=== PATIENT | female | born 1985 | race Caucasian/White ===

== ENCOUNTER 2019-08-20 13:26 | Inpatient (IN) ==
[2019-08-20 14:19] LABS: URINE SOURCE CLEAN CATCH
--- NOTE | 2019-08-20 14:21 | Diag Imaging Result Doc PS360 ---
CHEST-2 VIEWS - 08/20/2019 INDICATION: WEAKNESS COMPARISON: None FINDINGS: The lungs are normally expanded and clear. Heart size and mediastinal contours are normal. No pneumothorax or pleural effusion. IMPRESSION: Negative exam. Electronically signed by Joce Casillas 08/20/2019 2:19 PM
[2019-08-20 14:30] LABS: BILIRUBIN URINE NEGATIVE (NEGATIVE); BLOOD URINE NEGATIVE (NEGATIVE); COLOR STRAW; GLUCOSE URINE NEGATIVE (NEGATIVE); KETONE URINE NEGATIVE (NEGATIVE); LEUKOCYTES URINE NEGATIVE (NEGATIVE); NITRITE URINE NEGATIVE (NEGATIVE); PROTEIN URINE NEGATIVE (NEGATIVE); SP GRAVITY URINE 1.007; TURBIDITY URINE CLEAR (CLEAR); UR EPITHELIAL CELLS <10 /HPF (<10); URINE BACTERIA NEGATIVE /HPF; URINE RBC <10 /HPF (<10); URINE WBC <10 /HPF (<10); UROBILINOGEN URINE NORMAL (NORMAL)
--- NOTE | 2019-08-20 14:33 | PROVIDER DOCUMENTATION ---
HPI-Screening - General Chief Complaint: Weakness Stated Complaint: BLOOD SUGAR PROB Time Seen by Provider: 08/20/19 14:20 Source: patient Patient arrived via EMS?: No HPI: 34yof presents to ED today c/o SOB, fatigue x1 week which she states is c/w prior episodes of anemia which require blood transfusions. She states she was transfused in Sep 2018 and again in December 2018 for same. She reports no cause has been identified for her chronic anemia. She denies fever/chills/N/V/D/hematuria/rectal bleeding/melena. Physical Exam-Screening - CONSTITUTIONAL General Appearance: appears well, alert, no apparent distress - EYES Eyes: PERRL/EOMI, pale conjunctivae - HEAD, EARS, NOSE, MOUTH & THROAT HENMT: normocephalic/atraumatic, moist mucous membranes, normal ENT inspection - NECK Neck: non-tender, full range of motion, supple, normal inspection - RESPIRATORY Respiratory: chest non-tender, lungs clear, normal breath sounds - CARDIOVASCULAR Cardiovascular: normal peripheral pulses, regular rate, rhythm, no edema, no gallop, no JVD - GASTROINTESTINAL (ABDOMEN) Abdominal Exam: normal bowel sounds, non tender, soft, no organomegaly - LYMPHATIC Lymphatic: no adenopathy - MUSCULOSKELETAL Back Exam: normal inspection, no CVA tenderness, no vertebral tenderness Extremity: normal range of motion, non-tender, normal gait, normal inspection - SKIN Integumentary: normal turgor, warm/dry, pallor (mild) - NEUROLOGIC Neurologic: 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 II-XII nml as tested, grossly normal, no motor/sensory deficits - PSYCHIATRIC Psych/Mental Status: normal mood/affect, normal thought content, normal thought process, oriented x 3 Screening Depart - Departure ED Screening Disposition: Continued in ED for Treatment DIAGNOSIS: Weakness generalized Certified Medical Emergency: Emergent Condition: Stable Referrals and Follow-Ups: None,PCP [Primary Care Provider] - Attestation - Physician/ WINDY Attestation Patient care was provided by Advanced Practice Provider:: Yes Advanced Practice Provider:: Kaley Donnelly Advanced Practice Provider documentation review:: The Mid-level provider documentation, treatment plan and medical decision making was reviewed by the physician who agrees with all treatment and medical decision making by the MLP. The physician spent face to face time with patient:: No Advanced Practice Provider documentation review:: Supervising physician onsite and consulted in the evaluation and care of this patient. The physician did not have a face to face encounter with the patient.
[2019-08-20 14:34] LABS: BASO# 0.16 X1000 (0.0-0.2); BASO% 2.2 % (0.0-0.8); EOS# 0.12 X1000 (0.0-0.7); EOS% 1.7 % (0.0-10.0); HEMATOCRIT 28.2 % (37.0-47.0); HEMOGLOBIN 7.2 g/dL (12.0-16.0); LYMPH# 2.92 X1000 (1.2-3.4); LYMPH% 40.2 % (20.5-51.1); MCH 15.9 PG (27-31); MCHC 25.5 g/dL (33-37); MCV 62.1 FL (81-99); MONO# 0.54 X1000 (0.11-0.59); MONO% 7.4 % (1.7-9.3); MPV 9.1 FL (7.4-10.4); NEUT# 3.53 X1000 (1.4-6.5); NEUT% 48.5 % (42.2-75.2); RBC 4.54 XMIL (4.2-5.4); RDW 20.9 % (11.5-14.5); WBC 7.27 X1000 (4.8-10.8)
[2019-08-20 14:36] LABS: PLT 1011 X1000 (130-400)
[2019-08-20 14:39] LABS: AGAP 10; ALB/GLOB RATIO 1.3; ALBUMIN 4.4 g/dL (3.5-5.0); ALKALINE PHOSPHATASE 54 U/L (32-104); BUN 5 mg/dL (8-22); CALCIUM 9.5 mg/dL (8.8-10.2); CHLORIDE 106 mmol/L (98-107); COSMO 278; CREATININE 0.5 mg/dL (0.5-0.9); ESTIMATED GFR > 60; GLUCOSE 90 mg/dL (70-104); GOT 17 U/L (10-30); GPT 18 U/L (10-36); POTASSIUM 4.5 mmol/L (3.5-5.1); SODIUM 141 mmol/L (136-145); TCO2 25 mmol/L (25-35); TOTAL BILIRUBIN 0.33 mg/dL (0.20-1.00); TOTAL PROTEIN 7.8 g/dL (6.3-8.3)
--- NOTE | 2019-08-20 14:48 | EKG Report ---
Test Performed on : 08/20/2019 1:59:46 PM Test Reason : WEAKNESS Blood Pressure : / mmHG Vent. Rate : 067 BPM Atrial Rate : 067 BPM P-R Int : 128 ms QRS Dur : 074 ms QT Int : 402 ms P-R-T Axes : 051 066 049 degrees QTc Int : 424 ms Normal sinus rhythm. Normal ECG No previous ECGs available Unconfirmed Result
--- NOTE | 2019-08-20 15:31 | PROVIDER DOCUMENTATION ---
HPI-General Adult - General Chief Complaint: Weakness Stated Complaint: BLOOD SUGAR PROB Time Seen by Provider: 08/20/19 14:20 Source: patient Allergies/Adverse Reactions: Patient Allergies Allergy/AdvReac Type Severity Reaction Status Date / Time No Known Allergies Allergy Verified 08/20/19 16:46 Home Medications: Home Medication List Medication Instructions Recorded Confirmed Last Taken Type Iron 08/20/19 Unknown History - History of Present Illness -Gen Adult Nature of Presenting Problems: 34 yr old F, hx of anemia, presents to the ED with complaints of worsening weakness and fatigue for the past week. The pt states that she has had severe anemia in the past, with hemoglobin levels of 4, requiring two blood transfusions so far, the last one in December or January of 2019. She is a recent transplant from [place]; she is unsure what her anemia is due to. She does report heavy periods, 6-7 days in duration, at least 4 pad/tampon changes a day, though she denies clots. She's reported some dizziness in the past few days. She also denies noting SOB, chest pain, black stools, and she has not had hemateme sis or hemoptysis. Her last period was two weeks ago. Location of Pain/Injury: reports: none Pain Radiation: reports: no radiation Quality of Pain: reports: none Onset/Duration: reports: 1 week ago Timing: reports: still present Modifying Factors: improves with: nothing Similar Symptoms Previously?: Yes Review of Systems - Adult - REVIEW OF SYSTEMS - ADULT Constitutional: reports: fatique Eyes: reports: no symptoms reported Ears, Nose, Mouth & Throat: reports: no symptoms reported Cardiovascular: reports: no symptoms reported Respiratory: reports: no symptoms reported Gastrointestinal: reports: no symptoms reported Genitourinary: reports: no symptoms reported Musculoskeletal: reports: no symptoms reported Integumentary: reports: no symptoms reported Neurological: reports: no symptoms reported Psychiatric: reports: no symptoms reported Hematologic/Lymphatic: reports: low blood count, transfusions Past History - Adult - PAST MEDICAL HISTORY-ADULT Review of Records: reports: Nursing Assessment Review Major Childhood Illnesses: reports: denies history Cardiovascular: reports: denies history Respiratory: reports: denies history Gastrointestinal: reports: denies history Obstetrical/Gynecological: reports: denies history LMP: 08/06/19 Genitourinary: reports: denies history Musculoskeletal: reports: denies history Endocrine/Immune: reports: anemia - PRIOR SURGERIES/PROCEDURES Surgical/Procedure History: reports: none - SOCIAL HISTORY Smoking: denies Physical Exam-General - PHYSICAL EXAM-ADULT Initial Vital Signs Reviewed: Yes - CONSTITUTIONAL General Appearance: appears well, alert, no apparent distress - EYES Eyes: PERRL/EOMI - HEAD, EARS, NOSE, MOUTH & THROAT HENMT: normocephalic/atraumatic, moist mucous membranes - RESPIRATORY Respiratory: lungs clear, normal breath sounds - CARDIOVASCULAR Cardiovascular: regular rate, rhythm - GASTROINTESTINAL (ABDOMEN) Abdominal Exam: normal bowel sounds, non tender, soft - GENITOURINARY Rectal Exam: normal rectal tone Hemoccult Exam: heme negative stool - SKIN Integumentary: warm/dry, pallor - NEUROLOGIC Neurologic: other (adequate upper and lower extremity strength). negative: motor weakness, sensory deficit - PSYCHIATRIC Psych/Mental Status: normal mood/affect, oriented x 3 Progress - PLAN OF CARE/RESULTS Progress/Plan/Lab Results: Vital Signs - 8 hr 08/20/19 13:33 Temperature 97.8 F Pulse Rate 78 Respiratory Rate 18 Blood Pressure 124/80 O2 Sat by Pulse Oximetry 99 Bedside Urine ED: Urine Bedside Start: 08/20/19 13:39 Freq: NOW Status: Active Protocol: Activity Type Activity Date Activity User E-Sign Co-Sign Detail Recorded Client Recorded Date Recorded By Document 08/20/19 14:07 [id number] 08/20/19 14:07 [id number] 08/20/19 14:07 Point of Care [Bedside Point of Care] -Lot # [id number] - Results Negative -Control Line Visible? Yes Laboratory Results - last 24 hr 08/20/19 08/20/19 08/20/19 13:57 13:57 13:57 WBC 7.27 RBC 4.54 Hgb 7.2 L Hct 28.2 L MCV 62.1 L MCH 15.9 L MCHC 25.5 L RDW Std Deviation 20.9 H Plt Count 1011 H* MPV 9.1 Immature Gran % (Auto) 0.0 Neut % (Auto) 48.5 Lymph % (Auto) 40.2 Toombs % (Auto) 7.4 Eos % (Auto) 1.7 Baso % (Auto) 2.2 H Immature Gran # (Auto) 0.00 Neut # (Auto) 3.53 Lymph # (Auto) 2.92 [place]ombs # (Auto) 0.54 Eos # (Auto) 0.12 Baso # (Auto) 0.16 Sodium 141 Potassium 4.5 Chloride 106 Carbon Dioxide 25 Anion Gap 10 BUN 5 L Creatinine 0.5 Estimated GFR/1.73 m2 > 60 BUN/Creatinine Ratio 10 Glucose 90 Calculated Osmolality 278 Calcium 9.5 Total Bilirubin 0.33 AST 17 ALT 18 Alkaline Phosphatase 54 Total Protein 7.8 Albumin 4.4 Globulin 3.4 Albumin/Globulin Ratio 1.3 Urine Source CLEAN CATCH Urine Color STRAW Urine Turbidity CLEAR Urine pH 7.0 Ur Specific [place] 1.007 Urine Protein NEGATIVE Ur Glucose (Stick) NEGATIVE Ur Ketones (Stick) NEGATIVE Urine Blood NEGATIVE Urine Nitrite NEGATIVE Urine Bilirubin NEGATIVE Urobilinogen Dipstick NORMAL Urine Leukocytes NEGATIVE Urine WBC (Auto) <10 Urine RBC (Auto) <10 U Epithel Cells (Auto) <10 Urine Bacteria (Auto) NEGATIVE Orders Category Date Time Status ED: Urine Bedside NOW Care 08/20/19 13:39 Active If abnormal EKG, order: NOW Care 08/20/19 13:38 Active CHEST-2 VIEWS [RAD] Stat Exams 08/20/19 13:38 Completed CBC WITH ELECTRONIC DIFF [HEME] Stat Lab 08/20/19 13:57 Results COMPREHENSIVE METABOLIC PANEL [CHEM] Stat Lab 08/20/19 13:57 Completed OCCULT BLOOD SCREENING [STOOL] Stat Lab 08/20/19 15:30 Uncollected PROTIME WITH INR [COAG] Stat Lab 08/20/19 14:50 Ordered PTT [COAG] Stat Lab 08/20/19 14:50 Ordered TYPE & SCREEN [BBK] Stat Lab 08/20/19 14:50 Ordered UA NIMS W/REFLEX CULT [URINALYSIS] Stat Lab 08/20/19 13:57 Completed CP/Palp <45 No Known Cardiac Hx Stat Oth 08/20/19 13:38 Ordered EKG [EKG] Stat Ther 08/20/19 13:38 Draft Pt with positive orthostatics, symptomatic with anemia - will discuss case with hospitalist for admission. Result Diagrams: 08/20/19 13:57 08/20/19 13:57 - EKG 1 Time of EKG reading by physician:: 14:03 EKG Read and Signed by:: Elijah Wallace EKG Interpretation (*Must complete 3 of following elements*): Normal Rate: 67 Rhythm: sinus [place]: normal QRS: normal MO Interval: normal ST Wave: normal - XRAY 1 XRAY Study: Chest Impression: See EMR Report XRAY Interpretation: negative for acute pathology - CONSULTS/PCP/HOSPITALIST Notification #1 *Consult/PCP/Hospitalist*: Missy Time Discussed: 17:30 Consult Disposition: Admit Departure - Departure Date of Disposition Decision: 08/20/19 Time of Disposition Decision: 17:31 DIAGNOSIS: Weakness generalized, Anemia Disposition: ADMITTED INPATIENT 09 Certified Medical Emergency: Emergent Condition: Stable - Critical Care Note This patient required my direct & personal management of CC.: No Attestation - Physician/ WINDY Attestation Patient care was provided by Advanced Practice Provider:: No The physician spent face to face time with patient:: Yes Advanced Practice Provider documentation review:: Supervising physician onsite and consulted in the evaluation and care of this patient. The physician did have a face to face encounter with the patient.
[2019-08-20 15:38] LABS: BASO 1 % (0-1); HYPOCHROM 3+; LARGE PLATELETS OCCASIONAL; LYMPHS 40 % (21-51); MICROCYTOSIS 1+; MONO 5 % (1-9); SEGS 51 % (42-75)
[2019-08-20 16:35] LABS: PROTIME 13.3 Seconds (11.0-16.0)
[2019-08-20 16:36] LABS: PTT 29.7 Seconds (22.3-41.8)
--- NOTE | 2019-08-20 18:44 | HISTORY AND PHYSICAL ---
CHIEF COMPLAINT: Generalized weakness, dizziness, I feel like my blood counts are low. HISTORY OF PRESENT ILLNESS: This is a 34-year-old female with a history of anemia, with prior blood dyscrasias, having undergone 2 bone marrow biopsies in 2007 and 2009 for chronic leukocytosis. The patient states that both of these came back negative, but over the last year she has developed chronic anemia, having hemoglobin of 4.4 in September 2018 and 5.6 in January 2019. She states that iron studies were done. She was told her iron was low and put on an iron supplement. She did not follow up so no further outpatient testing was performed. The patient is from [place]. She has been in [place] since February in a local rehab for cocaine and methamphetamine addiction. The patient states that she has been feeling fine up until the last week. She noticed that she began to get tired going up steps. Over the last 48 hours she began to be lightheaded with position changes, and she stated that she knew then her blood counts must be low and she needed to get evaluated. She denied any black or bloody vomitus or stools, any chest pain or palpitations. PAST MEDICAL HISTORY: Anemia, hypokalemia. PAST SURGICAL HISTORY: Denies. SOCIAL HISTORY: She smokes 1 pack a day. She has a history of cocaine and methamphetamine addiction, being in rehab since February. ALLERGIES: No known drug allergies. HOME MEDICATIONS: Iron supplement. REVIEW OF SYSTEMS: Discussed with patient with pertinent positives stated in the HPI. She denies any syncope, any chest pain or palpitations, PND, orthopnea, productive cough, fever, chills, night sweats, recent weight loss or weight gain, any nausea, vomiting, diarrhea, constipation, black or bloody vomitus or stools, hematuria, dysuria, frequency, urgency. PHYSICAL EXAMINATION: GENERAL: This is a 34-year-old female who is lying on the stretcher in the emergency room in no distress. VITAL SIGNS: Blood pressure is 118/58 with a heart rate of 81, respirations are 16, temperature is 97.8 degrees oral with room air saturations 98% to 100%. EYES: Pupils equal, round, react to light. EOMs are intact. Sclerae anicteric. HEENT: Head is normocephalic, atraumatic. Mucous membranes are moist. NECK: Supple with trachea midline. CARDIOVASCULAR: Regular rate and rhythm. S1 and S2 are appreciated. She has no lower extremity edema. Peripheral pulses are palpable x4 extremities with calves nontender. PULMONARY: Breath sounds are clear with no increased work of breathing noted. GASTROINTESTINAL: Abdomen is soft, nontender, nondistended with bowel sounds in all 4 quadrants. GENITOURINARY: No CVA or suprapubic tenderness. NEUROLOGIC: She is alert and oriented x3. SKIN: Warm and dry. LABORATORIES: WBC is 7.2 with hemoglobin 7.2, hematocrit 28.2, and platelets of 1011. INR is 1. Sodium 141, potassium 4.5, BUN 5, creatinine 0.5, with a glucose of 90. Urinalysis is essentially negative. Stool for occult blood was negative. Chest x-ray reveals negative exam. ASSESSMENT AND PLAN: 1. Symptomatic anemia. 2. Generalized weakness. 3. Cocaine and methamphetamine abuse in a patient who has been in rehab since February 2019. 4. Tobacco use and abuse. PLAN: The patient will be admitted to the hospital and placed on telemetry. We will type and cross and give 1 unit of packed cells. Recheck a CBC, CMP in the morning. We will draw a ferritin, folate, total iron, and vitamin B12. We will ask the nursing staff to obtain her records from her hospitalizations in September and January in [place]. For DVT prophylaxis, we will use SCDs. For GI prophylaxis, Prilosec. We will consult Dr. Inga Ward and Oncology. Further treatments pending hospital course. Plan was discussed with Dr. Canada. Dictated by TERRIE Garcia for Johnny Campbell MD cc: TERRIE Garcia MD
[2019-08-20] MEDS: NS 1,000 ML IV SCH (19:27)
[2019-08-21] MEDS ORDERED: PRILOSEC PO SCH (07:00)
[2019-08-21 07:04] LABS: BASO# 0.15 X1000 (0.0-0.2); BASO% 2.3 % (0.0-0.8); EOS# 0.25 X1000 (0.0-0.7); EOS% 3.9 % (0.0-10.0); HEMATOCRIT 29.6 % (37.0-47.0); HEMOGLOBIN 7.9 g/dL (12.0-16.0); LYMPH# 2.36 X1000 (1.2-3.4); LYMPH% 36.4 % (20.5-51.1); MCH 17.4 PG (27-31); MCHC 26.7 g/dL (33-37); MCV 65.1 FL (81-99); MONO# 0.61 X1000 (0.11-0.59); MONO% 9.4 % (1.7-9.3); NEUT# 3.12 X1000 (1.4-6.5); PLT 826 X1000 (130-400); RBC 4.55 XMIL (4.2-5.4); RDW 22.4 % (11.5-14.5); WBC 6.49 X1000 (4.8-10.8)
[2019-08-21 07:28] LABS: AGAP 10; BUN 9 mg/dL (8-22); CALCIUM 8.9 mg/dL (8.8-10.2); CHLORIDE 108 mmol/L (98-107); COSMO 283; CREATININE 0.6 mg/dL (0.5-0.9); EOS 2 % (1-10); ESTIMATED GFR > 60; GLUCOSE 89 mg/dL (70-104); IRON SATURATION 3 %; LYMPHS 38 % (21-51); MONO 6 % (1-9); POTASSIUM 4.8 mmol/L (3.5-5.1); SEGS 54 % (42-75); SODIUM 143 mmol/L (136-145); TCO2 25 mmol/L (25-35); TIBC 384 ug/dL; TOTAL IRON 12 ug/dL (49-151); UNBOUND IRON 372 ug/dL (112-346)
[2019-08-21 07:29] LABS: ANISOCYTOSIS 2+; HYPOCHROM 2+; MICROCYTOSIS 3+; POIKILOCYTOSIS 1+
[2019-08-21 08:02] LABS: FERRITIN 4 ng/mL (13-150)
[2019-08-21] MEDS: NS 1,000 ML IV SCH (14:33)
[2019-08-21] MEDS ORDERED: VENOFER 200 MG in NS 150 ML IV ONE (15:00)
[2019-08-21] MEDS ORDERED: BENADRYL PO ONE (15:51)
[2019-08-21] MEDS ORDERED: SOLU-MEDROL IV ONE (17:03)
[2019-08-21] MEDS ORDERED: PEPCID IV ONE (17:03)
[2019-08-21] MEDS ORDERED: SODIUM CHLORIDE 0.9% INJ ONE (17:03)
[2019-08-21] MEDS ORDERED: BENADRYL PO PRN (17:04)
--- NOTE | 2019-08-21 18:09 | HEMO/ONC CONSULTATION ---
DATE: 08/21/2019 REQUEST PHYSICIAN: Dr. Guillen. DIAGNOSIS AND REASON FOR CONSULTATION: Anemia and thrombocytosis. Thank you for the consultation. HISTORY OF PRESENT ILLNESS: Ms. Yessy Lindsey is a 34-year-old female with a known history of anemia and blood dyscrasias, previous owrk-up with 2 bone marrow biopsies in 2007 and 2009 for chronic leukocytosis, both revealing negative pathology. However, she does report recent acute episodes of anemia associated with syncope, requiring hospitalizations on 2 occasions, both requiring blood transfusion, in September 2018 and January 2019. The patient indicates that she developed recurrent symptoms approximately 1 week ago consisting of fatigue, significant lack of energy, lightheadedness, and occasional episodes of dizziness. She presented to [facility] Emergency Department for further evaluation and was admitted for workup and treatment, which included type and crossmatch for transfusion of 1 unit packed red blood cells at the time of admission. PAST MEDICAL HISTORY: Anemia and hypokalemia. PAST SURGICAL HISTORY: None. SOCIAL HISTORY: Tobacco use, 1 pack per day. Alcohol use, moderate. Illicit substance, known history of cocaine and methamphetamine addiction, inpatient rehab since February 2019. FAMILY HISTORY: Unremarkable. ALLERGIES: No known drug allergies. REVIEW OF SYSTEMS: As noted in HPI. Otherwise, patient denies recent syncopal episode, chest pain, palpitations, fever, chills, night sweats, cough, abdominal pain, nausea, vomiting, constipation, or diarrhea, bright red blood or dark tarry stool. No blood in her urine. No pain or burning with urination, frequency, or urgency. PHYSICAL EXAMINATION: General: Pleasant, acutely ill-appearing female, lying in hospital bed at time of visit. Vital signs: The patient is afebrile. Pulse 70, blood pressure 106/62, respirations 16, oxygen saturation 100% on room air. HEENT: Atraumatic, normocephalic. PERRL. EOMI. Conjunctival pallor noted. Neck: Supple. Heart: S1, S2. Regular rate and rhythm. No murmur, gallop, or rub. Lungs: Bilateral breath sounds. Clear to auscultation. GI: Abdomen is soft, nondistended, nontender. Bowel sounds positive in all quadrants. Neurologic: Alert and oriented. Skin: Clean, warm, dry, and intact. Generalized pallor noted. LABS: WBC 6.49, hemoglobin 7.9, hematocrit 29.6, platelet count 826. Sodium 143, potassium 4.8, chloride 108, CO2 25, BUN 9, creatinine 0.6, glucose 89. ASSESSMENT AND PLAN: 1. Anemia, symptomatic, s/p type and cross with 1 unit packed red blood cell transfusion on admission, with mild improvement noted. Further monitoring and transfusion per primary team. 2. Generalized weakness, multifactorial, associated with #1, as well as additional problems noted below. Slightly improved status post transfusion. Continued monitoring and management per primary. 3. Iron deficiency with an iron level of 12, ferritin level of 4, and iron saturation of 3%. We will plan for IV iron infusion with Venofer today. Premed per [facility] protocol. Recommend consult for GI and ETL DATABASE DEVELOPER for further workup and evaluation to determine underlying etiology. Consultations per primary team. 4. Tobacco use/abuse. Cessation discussed and encouraged. 5. Cocaine and methamphetamine addiction, inpatient rehab since February 2019. Discharge planning per primary. Again, thank you for the consultation regarding this pleasant, young female patient. We will make arrangements for IV iron infusion therapy with Venofer with recommended follow up iron panel in approximately 3 months. As noted above, also recommend GI and ETL DATABASE DEVELOPER consultations for further evaluation and recommendations. We will remain available as needed during her hospital stay. Dictated by TERRIE Randolph for Inga Ward MD cc: Inga Ward MD I have seen and examined the patient and the above note reflects my history, physical exam, assessment and plan. Inga Ward MD [facility]
[2019-08-21 20:08] VITALS: BP 107/65
--- NOTE | 2019-08-22 12:40 | DISCHARGE SUMMARY ---
ADMISSION DATE: 08/20/2019 DISCHARGE DATE: 08/21/2019 DISCHARGE DIAGNOSES: 1. Symptomatic anemia. 2. Iron deficiency. 3. Folic acid deficiency. HOSPITAL COURSE: The patient was admitted for weakness, and she is in a long-term rehab, I want to say a year rehab, for which she has been there for cocaine and methamphetamine use. She has been developing dizziness, and came in for evaluation. She has had to have blood transfusions before. Hemoglobin of 4.4, 5.6. No clear bleeding site. No menorrhagia or metrorrhagia. Her hemoglobin and hematocrit at this time was 7 and 28, and that prompted an admission for blood. Her repeat is 7.9 and 29.6 after 1 unit, and seems stable. In any case, her folic acid level was low at 8.7, her iron was low at 12, and a ferritin of 4, so she will be discharged on increased iron dose, ferrous sulfate 325 t.i.d., and folic acid 1 daily. This is a service admission. The patient is actually from the [facility], just up here for rehab in the short term. cc: Freddy Guillen MD
== END 2019-08-21 21:30 | disposition home or self-care (01) | DRG 812 ==
LOC: ED 13:26 → 3N 19:44 → SUATTDRO 19:44
PROVIDERS: ATTEND Internal Medicine